=== PATIENT | female | born 1950 | race African-American/Black ===

== ENCOUNTER 2018-11-21 16:55 | Emergency (ER) | payer MEDICAID, OTHER ==
[~2018-11-21] VITALS: Ht 172.7 cm; Wt 100.0 kg
[2018-11-21] MEDS ORDERED: ACETAMINOPHEN 325MG TABLET PO ONE (18:30)
[2018-11-21] MEDS ORDERED: HYDROCODONE/ACETAMINOPHEN 5/325MG TABLET PO ONE (19:45)
[2018-11-21 20:28] VITALS: BP 168/89
== END 2018-11-21 20:53 | disposition home or self-care (01) ==
LOC: ER 16:55
DX: S92.411A Displaced fracture of proximal phalanx of right great toe, initial encounter for closed fracture (principal); H93.19 Tinnitus, unspecified ear; I10 Essential (primary) hypertension; E78.00 Pure hypercholesterolemia, unspecified; I25.10 Atherosclerotic heart disease of native coronary artery without angina pectoris; F17.200 Nicotine dependence, unspecified, uncomplicated; W01.0XXA Fall on same level from slipping, tripping and stumbling without subsequent striking against object, initial encounter; Y93.89 Activity, other specified; Y92.89 Other specified places as the place of occurrence of the external cause; Z88.1 Allergy status to other antibiotic agents; Z88.5 Allergy status to narcotic agent; Z98.51 Tubal ligation status
CPT/HCPCS: 73630; 99283

== ENCOUNTER 2019-03-15 04:57 | Inpatient (IN) | payer MEDICAID, OTHER ==
[~2019-03-15] VITALS: Ht 172.7 cm; Wt 103.0 kg
[2019-03-15 05:59] LABS: BASOPHILS % 2.1 % (0.0-2.0); HEMATOCRIT. 42.6 % (36.0-48.0); HEMOGLOBIN. 14.1 g/dL (12.0-16.0); LYMPHOCYTES % 59.1 % (20.0-50.0); MEAN CORPUSCULAR HEMOGLOBIN 31.1 pg (28.0-32.0); MEAN CORPUSCULAR VOLUME 93.9 fL (81.0-99.0); MEAN PLATELET VOLUME 11.2 fl (7.4-10.4); MONOCYTES % 7.1 % (2.0-8.0); NEUTROPHILS % 29.7 % (40.0-76.0); PLATELET 163 x1000/uL (130-400); RED BLOOD CELL COUNT 4.54 mill/uL (4.2-5.4); RED CELL DISTRIBUTION WIDTH 14.3 % (11.6-14.6)
[2019-03-15 06:06] LABS: CHLORIDE 110 mEq/L (98-107)
[2019-03-15] MEDS ORDERED: FUROSEMIDE 40MG/4ML VIAL IV ONE (07:15)
[2019-03-15] MEDS ORDERED: NITROGLYCERIN OINT 1GM/INCH UDPKT TD ONE (07:15)
[2019-03-15] MEDS ORDERED: ASPIRIN 81MG TABLET PO ONE (07:15)
[2019-03-15] MEDS ORDERED: CLONIDINE 0.1MG TABLET PO PRN (08:15)
[2019-03-15] MEDS ORDERED: ONDANSETRON HCL 4MG/2ML INJ IV PRN (08:15)
[2019-03-15] MEDS ORDERED: ACETAMINOPHEN 325MG TABLET PO PRN (08:15)
[2019-03-15 10:00] VITALS: BP 154/96
[2019-03-15] MEDS: POTASSIUM CHLORIDE 20MEQ TABLET SR PO SCH (10:27)
[2019-03-15] MEDS: LOSARTAN POTASSIUM 50 MG TABLET PO SCH (10:27)
[2019-03-15] MEDS: ENOXAPARIN 30MG/0.3ML SYR SUBCUT SCH ×2 (10:34→22:05)
[2019-03-15] MEDS: CARVEDILOL 12.5MG TABLET PO SCH ×2 (10:35→21:00)
[2019-03-15] MEDS: MORPHINE SULFATE 4 MG/ML CPJ (NOT FOR IM USE) IV PRN ×2 (10:35→18:12)
[2019-03-15 10:40] VITALS: BP 154/96
[2019-03-15] MEDS ORDERED: ASPI-1159 MT (10:50)
[2019-03-15] MEDS ORDERED: LIP40 MT (10:50)
[2019-03-15] MEDS ORDERED: BISA-81 MT (10:50)
[2019-03-15 12:34] VITALS: BP 144/87
[2019-03-15] MEDS ORDERED: LACTULOSE 20G/30ML UDC PO PRN (13:00)
[2019-03-15] MEDS ORDERED: LACTULOSE 20G/30ML UDC PO NR (13:00)
[2019-03-15] MEDS: DOCUSATE SODIUM 250MG CAPSULE PO SCH (13:27)
[2019-03-15] MEDS: ALPRAZOLAM 0.5 MG TABLET PO PRN ×2 (13:27→21:46)
[2019-03-15] MEDS: LEVOTHYROXINE SODIUM 50MCG TABLET PO SCH (15:07)
[2019-03-15 16:01] VITALS: BP 131/76
[2019-03-15 17:27] LABS: T4 FREE 0.99 ng/dL (0.76-1.46)
[2019-03-15 17:48] VITALS: BP 140/89
[2019-03-15] MEDS: FUROSEMIDE 40MG/4ML VIAL IVP SCH (18:12)
[2019-03-15 20:00] VITALS: BP 111/72
[2019-03-15] MEDS ORDERED: ZOLPIDEM TARTRATE 5MG TABLET PO PRN (21:00)
[2019-03-15] MEDS: AMLODIPINE 5MG TABLET PO SCH (21:00)
[2019-03-16] VITALS: BP 123/71
[2019-03-16 04:00] VITALS: BP 117/81
[2019-03-16 06:26] LABS: BASOPHILS % 1.2 % (0.0-2.0); EOSINOPHILS % 3.2 % (0.0-5.0); HEMATOCRIT. 42.8 % (36.0-48.0); HEMOGLOBIN. 13.9 g/dL (12.0-16.0); LYMPHOCYTES % 57.1 % (20.0-50.0); MEAN CORPUSCULAR HEMOGLOBIN 30.6 pg (28.0-32.0); MEAN CORPUSCULAR VOLUME 94.2 fL (81.0-99.0); MEAN PLATELET VOLUME 11.5 fl (7.4-10.4); NEUTROPHILS % 29.5 % (40.0-76.0); PLATELET 161 x1000/uL (130-400); RED BLOOD CELL COUNT 4.54 mill/uL (4.2-5.4); RED CELL DISTRIBUTION WIDTH 14.1 % (11.6-14.6)
[2019-03-16] MEDS: LEVOTHYROXINE SODIUM 50MCG TABLET PO SCH (06:38)
[2019-03-16] MEDS: FUROSEMIDE 40MG/4ML VIAL IVP SCH ×2 (06:38→17:24)
[2019-03-16] MEDS: MORPHINE SULFATE 4 MG/ML CPJ (NOT FOR IM USE) IV PRN ×3 (06:42→20:13)
[2019-03-16 06:44] LABS: CHLORIDE 105 mEq/L (98-107)
[2019-03-16] MEDS: ALPRAZOLAM 0.5 MG TABLET PO PRN ×2 (07:52→17:24)
[2019-03-16 08:00] VITALS: BP 131/85
[2019-03-16 08:20] LABS: CLARITY URINE CLEAR (CLEAR); COLOR URINE YELLOW (YELLOW); KETONES URINE NEGATIVE (NEGATIVE); LEUKOCYTE ESTERASE URINE NEGATIVE (NEGATIVE); NITRITE URINE NEGATIVE (NEGATIVE); OCCULT BLOOD URINE NEGATIVE (NEGATIVE); PH URINE 5.5 (4.5-8.0); PROTEIN URINE NEGATIVE (NEGATIVE); SPECIFIC GRAVITY URINE 1.013 (1.005-1.030); UROBILINOGEN URINE 0.2 E.U./dL (0.2-1.0)
[2019-03-16 08:39] LABS: *AMPHETAMINES SCREEN URINE NEGATIVE (NEGATIVE); *BARBITURATES SCREEN URINE NEGATIVE (NEGATIVE); *BENZODIAZEPINES SCREEN URINE PRESUMTIVE POSITIVE (NEGATIVE); *COCAINE SCREEN URINE NEGATIVE (NEGATIVE); METHADONE URINE SCREEN NEGATIVE (NEGATIVE); OPIATES URINE SCREEN PRESUMTIVE POSITIVE (NEGATIVE); PHENCYCLIDINE URINE SCREEN NEGATIVE (NEGATIVE)
[2019-03-16 08:40] LABS: CANNABINOID URINE SCREEN NEGATIVE (NEGATIVE)
[2019-03-16] MEDS: ENOXAPARIN 30MG/0.3ML SYR SUBCUT SCH ×2 (10:15→20:14)
[2019-03-16] MEDS: DOCUSATE SODIUM 250MG CAPSULE PO SCH (10:16)
[2019-03-16] MEDS: ASPIRIN 81MG TABLET PO SCH (10:16)
[2019-03-16] MEDS: AMLODIPINE 5MG TABLET PO SCH ×2 (10:18→20:13)
[2019-03-16] MEDS: POTASSIUM CHLORIDE 20MEQ TABLET SR PO SCH (10:18)
[2019-03-16] MEDS: LOSARTAN POTASSIUM 50 MG TABLET PO SCH (10:18)
[2019-03-16] MEDS: MAGNESIUM OXIDE 400MG TABLET PO SCH (10:18)
[2019-03-16] MEDS: NITROGLYCERIN OINT 1GM/INCH UDPKT TD SCH ×2 (11:00→19:00)
[2019-03-16] MEDS ORDERED: KCL 20MEQ/100ML PREMIX 100 ML IV NR ×2 (11:00→18:00)
[2019-03-16] MEDS ORDERED: MAGNESIUM 2 G PREMIX 50 ML IV NR (11:00)
[2019-03-16 12:00] VITALS: BP 149/94
[2019-03-16] MEDS ORDERED: POTASSIUM CHLORIDE 20MEQ TABLET SR PO SCH (14:30)
[2019-03-16 16:00] VITALS: BP 138/80
[2019-03-16 20:00] VITALS: BP 129/81
[2019-03-16] MEDS: CARVEDILOL 6.25 MG TABLET PO SCH (20:13)
[2019-03-16] MEDS ORDERED: POTASSIUM CHLORIDE 20MEQ TABLET SR PO NR (21:00)
[2019-03-17] VITALS: BP 103/57
[2019-03-17] MEDS: MORPHINE SULFATE 4 MG/ML CPJ (NOT FOR IM USE) IV PRN ×4 (00:39→20:12)
[2019-03-17] MEDS: NITROGLYCERIN OINT 1GM/INCH UDPKT TD SCH ×3 (02:53→20:27)
[2019-03-17] MEDS: ALPRAZOLAM 0.5 MG TABLET PO PRN ×2 (03:40→13:05)
[2019-03-17 04:00] VITALS: BP 115/73
[2019-03-17] MEDS: LEVOTHYROXINE SODIUM 50MCG TABLET PO SCH (06:30)
[2019-03-17] MEDS: FUROSEMIDE 40MG/4ML VIAL IVP SCH ×2 (06:30→17:01)
[2019-03-17 06:38] LABS: BASOPHILS % 0.7 % (0.0-2.0); EOSINOPHILS % 4.3 % (0.0-5.0); HEMATOCRIT. 45.1 % (36.0-48.0); HEMOGLOBIN. 15.5 g/dL (12.0-16.0); LYMPHOCYTES % 53.1 % (20.0-50.0); MEAN CORPUSCULAR HEMOGLOBIN 32.1 pg (28.0-32.0); MEAN CORPUSCULAR VOLUME 93.3 fL (81.0-99.0); MEAN PLATELET VOLUME 11.3 fl (7.4-10.4); MONOCYTES % 10.1 % (2.0-8.0); NEUTROPHILS % 31.8 % (40.0-76.0); PLATELET 173 x1000/uL (130-400); RED BLOOD CELL COUNT 4.83 mill/uL (4.2-5.4); RED CELL DISTRIBUTION WIDTH 14.1 % (11.6-14.6)
[2019-03-17 07:21] LABS: CHLORIDE 103 mEq/L (98-107)
[2019-03-17 08:00] VITALS: BP 110/72
[2019-03-17] MEDS: POTASSIUM CHLORIDE 20MEQ TABLET SR PO SCH (08:41)
[2019-03-17] MEDS: LOSARTAN POTASSIUM 50 MG TABLET PO SCH (08:41)
[2019-03-17] MEDS: MAGNESIUM OXIDE 400MG TABLET PO SCH (08:41)
[2019-03-17] MEDS: ENOXAPARIN 30MG/0.3ML SYR SUBCUT SCH ×2 (08:42→20:10)
[2019-03-17] MEDS: AMLODIPINE 5MG TABLET PO SCH ×2 (08:42→20:10)
[2019-03-17] MEDS: DOCUSATE SODIUM 250MG CAPSULE PO SCH (08:42)
[2019-03-17] MEDS: ASPIRIN 81MG TABLET PO SCH (08:42)
[2019-03-17] MEDS: CARVEDILOL 6.25 MG TABLET PO SCH ×2 (08:42→20:11)
[2019-03-17] MEDS ORDERED: POTASSIUM CHLORIDE 20MEQ TABLET SR PO NR (11:30)
[2019-03-17 12:00] VITALS: BP 100/60
[2019-03-17 16:00] VITALS: BP 144/96
[2019-03-17 20:00] VITALS: BP 117/79
[2019-03-18] VITALS: BP 95/63
[2019-03-18] MEDS: NITROGLYCERIN OINT 1GM/INCH UDPKT TD SCH ×3 (03:00→12:31)
[2019-03-18 04:00] VITALS: BP 123/85
[2019-03-18] MEDS: MORPHINE SULFATE 4 MG/ML CPJ (NOT FOR IM USE) IV PRN ×2 (05:41→11:39)
[2019-03-18] MEDS: LEVOTHYROXINE SODIUM 50MCG TABLET PO SCH (05:41)
[2019-03-18] MEDS: FUROSEMIDE 40MG/4ML VIAL IVP SCH ×2 (06:23→17:15)
[2019-03-18 07:06] LABS: BASOPHILS % 0.6 % (0.0-2.0); EOSINOPHILS % 4.4 % (0.0-5.0); HEMATOCRIT. 46.9 % (36.0-48.0); HEMOGLOBIN. 15.4 g/dL (12.0-16.0); LYMPHOCYTES % 57.1 % (20.0-50.0); MEAN CORPUSCULAR HEMOGLOBIN 30.9 pg (28.0-32.0); MEAN PLATELET VOLUME 11.2 fl (7.4-10.4); MONOCYTES % 11.2 % (2.0-8.0); NEUTROPHILS % 26.7 % (40.0-76.0); PLATELET 168 x1000/uL (130-400); RED BLOOD CELL COUNT 4.99 mill/uL (4.2-5.4); RED CELL DISTRIBUTION WIDTH 14.2 % (11.6-14.6)
[2019-03-18 07:23] LABS: CHLORIDE 104 mEq/L (98-107)
[2019-03-18] MEDS: ASPIRIN 81MG TABLET PO SCH (08:41)
[2019-03-18] MEDS: MAGNESIUM OXIDE 400MG TABLET PO SCH (08:41)
[2019-03-18] MEDS: CARVEDILOL 6.25 MG TABLET PO SCH (08:42)
[2019-03-18] MEDS: POTASSIUM CHLORIDE 20MEQ TABLET SR PO SCH (08:42)
[2019-03-18] MEDS: DOCUSATE SODIUM 250MG CAPSULE PO SCH (08:42)
[2019-03-18] MEDS: LOSARTAN POTASSIUM 50 MG TABLET PO SCH (08:42)
[2019-03-18] MEDS: AMLODIPINE 5MG TABLET PO SCH (08:43)
[2019-03-18] MEDS: ENOXAPARIN 30MG/0.3ML SYR SUBCUT SCH (08:44)
[2019-03-18] MEDS: ALPRAZOLAM 0.5 MG TABLET PO PRN (08:46)
[2019-03-18 12:00] VITALS: BP_SYST 120; BP_SYST 158; BP_DIAS 76; BP_DIAS 83
[2019-03-18] MEDS ORDERED: HYDROCODONE/ACETAMINOPHEN 5/325MG TABLET PO PRN (13:15)
[2019-03-18 16:00] VITALS: BP 158/83
[2019-03-18 17:54] VITALS: BP 107/56
== END 2019-03-18 19:15 | disposition home or self-care (01) | DRG 133 ==
LOC: ER 04:57 → 6WST 07:15 → EDBEDREQ 07:33 → ENRESERV 07:55 → 8WST 03-16 07:54
PROVIDERS: ADMIT Internal Medicine; ATTEND Internal Medicine
DX: J96.00 Acute respiratory failure, unspecified whether with hypoxia or hypercapnia (principal); I50.23 Acute on chronic systolic (congestive) heart failure; I47.2 Ventricular tachycardia; I11.0 Hypertensive heart disease with heart failure; E44.1 Mild protein-calorie malnutrition; E83.42 Hypomagnesemia; I25.10 Atherosclerotic heart disease of native coronary artery without angina pectoris; F41.9 Anxiety disorder, unspecified; I49.3 Ventricular premature depolarization; E87.6 Hypokalemia; E03.9 Hypothyroidism, unspecified; I08.0 Rheumatic disorders of both mitral and aortic valves; E66.09 Other obesity due to excess calories; E78.5 Hyperlipidemia, unspecified; E87.8 Other disorders of electrolyte and fluid balance, not elsewhere classified; I25.2 Old myocardial infarction; Z88.0 Allergy status to penicillin; Z87.01 Personal history of pneumonia (recurrent); Z90.710 Acquired absence of both cervix and uterus; Z98.51 Tubal ligation status; Z79.82 Long term (current) use of aspirin; Z79.899 Other long term (current) drug therapy; Z71.3 Dietary counseling and surveillance; Z68.34 Body mass index [BMI] 34.0-34.9, adult
CPT/HCPCS: 36415; 71045; 80048; 80061; 80305; 82962; 83735; 83880; 84145; 84439; 84443; 84484; 93005; 93306; 96374; 99285; J1650; J1940; J2270; J3475; J3480